=== PATIENT | female | born 1960 | race Hispanic/Latino ===

== ENCOUNTER 2017-10-02 21:47 | Emergency (ER) | payer MEDICARE, OTHER ==
--- NOTE | 2017-10-03 00:53 | ER ---
Nurse's Notes [facility] Name: Yulissa Nova Age: 57 yrs Sex: Female : 1960 Arrival Date: 10/02/2017 Time: 21:48 Bed 26 Private MD: Diagnosis: Sprain of other ligament of left ankle;Pain in right knee;Pain in right foot Presentation: 10/02 21:56 Presenting complaint: Patient states: Fell on , reports pain to left foot and aj right knee that has not improved. Ambulated with limp to triage. Transition of care: patient was not received from another setting of care. Onset of symptoms was September 21, 2017. Care prior to arrival: None. 21:56 Method Of Arrival: Ambulatory 21:56 Acuity: ROBBIE 4 aj Triage Assessment: 22:01 General: Appears in no apparent distress. uncomfortable, Behavior is calm, cooperative, aj appropriate for age. Pain: Complains of pain in left foot and right knee Pain currently is 8 out of 10 on a pain scale. Neuro: Level of Consciousness is awake, alert, obeys commands, Oriented to person, place, time, situation. Respiratory: Airway is patent Respiratory effort is even, unlabored, Respiratory pattern is regular, symmetrical. Derm: Skin is intact, is healthy with good turgor, Skin is pink, warm \T\ dry. normal. Musculoskeletal: Reports pain in left foot and right knee. Historical: - Allergies: 22:01 Bactrim; aj 22:01 Cipro; aj - Home Meds: 22:01 Lisinopril Oral [Active]; Hydrochlorothiazide Oral [Active]; Lantus 100 unit/mL Sub-Q aj soln [Active]; Metformin Oral [Active]; humalin r [Active]; Trazodone Oral [Active]; Oxybutynin Chloride Oral [Active]; gabapentin oral oral [Active]; loratidine [Active]; Cymbalta oral oral [Active]; - PMHx: 22:01 Diabetes - IDDM; Hypertension; Hyperlipidemia; aj - PSHx: 22:01 Knee surgery; Hysterectomy; ; 1 st left rib removal; Tonsillectomy; aj Appendectomy; - Immunization history:: Adult Immunizations up to date. - Social history:: Smoking status: Patient/guardian denies using tobacco. Screenin:03 Abuse screen: Denies threats or abuse. Nutritional screening: No deficits noted. tl3 Tuberculosis screening: No symptoms or risk factors identified. Fall Risk None identified. Assessment: 23:03 General: Appears in no apparent distress. well groomed, well developed, well nourished, tl3 Behavior is calm, cooperative, appropriate for age. Pain: Complains of pain in left foot and right knee. Neuro: Level of Consciousness is awake, alert, obeys commands, Oriented to person, place, time, situation, Appropriate for age. Cardiovascular: Heart tones S1 S2 present Capillary refill < 3 seconds in left toes. Respiratory: Airway is patent Trachea midline Respiratory effort is even, unlabored, Respiratory pattern is regular, symmetrical. GI: GI: No signs and/or symptoms were reported involving the gastrointestinal system. : No signs and/or symptoms were reported regarding the genitourinary system. EENT: No signs and/or symptoms were reported regarding the EENT system. Derm: No signs and/or symptoms reported regarding the dermatologic system. Musculoskeletal: No signs and/or symptoms reported regarding the musculoskeletal system. Injury Description: fell on , injuring left ankle and foot, right knee. 04 00:15 Reassessment: Patient appears in no apparent distress at this time. No changes from tl3 previously documented assessment. Patient and/or family updated on plan of care and expected duration. Pain level reassessed. Patient is alert, oriented x 3, equal unlabored respirations, skin warm/dry/pink. PT RESTING IN BED WATCHING TV. 00:15 Reassessment: Patient appears in no apparent distress at this time. No changes from tl3 previously documented assessment. Patient and/or family updated on plan of care and expected duration. Pain level reassessed. Patient is alert, oriented x 3, equal unlabored respirations, skin warm/dry/pink. SLIM WRAPPED LEFT FOOT/ANKLE. Vital Signs: 10/02 22:01 BP 120 / 64; Pulse 85; Resp 17; Temp 97.7; Pulse Ox 97% on R/A; Weight 98.43 kg; Height aj 5 ft. 1 in. (154.94 cm); Pain 8/10; 10/03 00:15 BP 106 / 86; Pulse 61; Resp 18; Pulse Ox 100% on R/A; tl3 10/02 22:01 Body Mass Index 41.00 (98.43 kg, 154.94 cm) ED Course: 10/02 21:48 Patient arrived in ED. es 21:57 Triage completed. aj 22:01 Arm band placed on left wrist. Patient placed in waiting room, Patient notified of wait aj time. 22:35 Nicholas Bowser NP is PHCP. pm1 22:35 Ankit Russell MD is Attending Physician. pm1 23:02 Marylu Hudson, MACI is Primary Nurse. tl3 23:03 No apparent distress. Awaiting for x-ray. tl3 23:03 Patient has correct armband on for positive identification. Call light in reach. tl3 23:03 No provider procedures requiring assistance completed. Patient did not have IV access tl3 during this emergency room visit. 23:15 Knee Right 3 View XRAY In Process Unspecified. EDMS 23:15 Foot Left 3 View In Process Unspecified. EDMS 23:15 Ankle Left 3 View In Process Unspecified. EDMS 23:17 X-ray completed. Portable x-ray completed in exam room. Patient tolerated procedure kw well. 04 00:52 Shaw Trujillo MD is Referral Physician. pm1 Administered Medications: No medications were administered Outcome: 00:15 Discharged to home ambulatory. tl3 00:15 Condition: good 00:15 Discharge instructions given to patient, Instructed on discharge instructions, follow up and referral plans. Demonstrated understanding of instructions, follow-up care. 00:53 Discharge ordered by MD. pm1 01:17 Patient left the ED. tl3 Signatures: Dispatcher [employer] Lisa Smallwood, RN RN Stephanie Millan Kimberlee Nicholas Bowser NP COUNTY ENGINEER pm1 Marylu Hudson, MACI RN tl3
--- NOTE | 2017-10-03 00:53 | EDPHYS ---
Physician Documentation [facility] Name: Yulissa Nova Age: 57 yrs Sex: Female : 1960 Arrival Date: 10/02/2017 Time: 21:48 Bed 26 Private MD: ED Physician Ankit Russell HPI: 10/03 00:00 This 57 yrs old Female presents to ER via Ambulatory with complaints of Fall pm1 Injury. 00:00 Details of fall: The patient fell from an upright position, while walking. Onset: The pm1 symptoms/episode began/occurred 09/21. Associated injuries: The patient sustained right knee and left foot. Severity of symptoms: in the emergency department the symptoms have improved, mildly. The patient has not experienced similar symptoms in the past. Patient tripped and fell on 09/21 resulting in pain to right knee and left foot. Patient walking with limp due to pain in left foot. Patient without any headache, head injury, or neck pain. No LOC. Historical: - Allergies: 10/02 22:01 Bactrim; aj 22:01 Cipro; aj - Home Meds: 22:01 Lisinopril Oral [Active]; Hydrochlorothiazide Oral [Active]; Lantus 100 unit/mL Sub-Q aj soln [Active]; Metformin Oral [Active]; humalin r [Active]; Trazodone Oral [Active]; Oxybutynin Chloride Oral [Active]; gabapentin oral oral [Active]; loratidine [Active]; Cymbalta oral oral [Active]; - PMHx: 22:01 Diabetes - IDDM; Hypertension; Hyperlipidemia; aj - PSHx: 22:01 Knee surgery; Hysterectomy; ; 1 st left rib removal; Tonsillectomy; Appendectomy; - Immunization history:: Adult Immunizations up to date. - Social history:: Smoking status: Patient/guardian denies using tobacco. ROS: 10/03 00:00 Constitutional: Negative for fever, chills, and weight loss, Eyes: Negative for injury, pm1 pain, redness, and discharge, ENT: Negative for injury, pain, and discharge, Neck: Negative for injury, pain, and swelling, Cardiovascular: Negative for chest pain, palpitations, and edema, Respiratory: Negative for shortness of breath, cough, wheezing, and pleuritic chest pain, Abdomen/GI: Negative for abdominal pain, nausea, vomiting, diarrhea, and constipation, Back: Negative for injury and pain, : Negative for injury, bleeding, discharge, and swelling. Skin: Negative for injury, rash, and discoloration, Neuro: Negative for headache, weakness, numbness, tingling, and seizure. MS/extremity: Positive for pain, of the left foot and right knee. Exam: 00:00 Constitutional: This is a well developed, well nourished patient who is awake, alert, pm1 and in no acute distress. Head/Face: Normocephalic, atraumatic. Eyes: Pupils equal round and reactive to light, extra-ocular motions intact. Lids and lashes normal. Conjunctiva and sclera are non-icteric and not injected. Cornea within normal limits. Periorbital areas with no swelling, redness, or edema. ENT: Nares patent. No nasal discharge, no septal abnormalities noted. Tympanic membranes are normal and external auditory canals are clear. Oropharynx with no redness, swelling, or masses, exudates, or evidence of obstruction, uvula midline. Mucous membranes moist. Neck: Trachea midline, no thyromegaly or masses palpated, and no cervical lymphadenopathy. Supple, full range of motion without nuchal rigidity, or vertebral point tenderness. No Meningismus. Chest/axilla: Normal chest wall appearance and motion. Nontender with no deformity. No lesions are appreciated. Cardiovascular: Regular rate and rhythm with a normal S1 and S2. No gallops, murmurs, or rubs. Normal PMI, no JVD. No pulse deficits. Respiratory: Lungs have equal breath sounds bilaterally, clear to auscultation and percussion. No rales, rhonchi or wheezes noted. No increased work of breathing, no retractions or nasal flaring. Abdomen/GI: Soft, non-tender, with normal bowel sounds. No distension or tympany. No guarding or rebound. No evidence of tenderness throughout. Back: No spinal tenderness. No costovertebral tenderness. Full range of motion. Skin: Warm, dry with normal turgor. Normal color with no rashes, no lesions, and no evidence of cellulitis. 00:00 Musculoskeletal/extremity: Extremities: grossly normal except: noted in the lateral side of left foot: pain, noted in the right knee: pain. Vital Signs: 10/02 22:01 BP 120 / 64; Pulse 85; Resp 17; Temp 97.7; Pulse Ox 97% on R/A; Weight 98.43 kg; Height aj 5 ft. 1 in. (154.94 cm); Pain 8/10; 10/03 00:15 BP 106 / 86; Pulse 61; Resp 18; Pulse Ox 100% on R/A; tl3 10/02 22:01 Body Mass Index 41.00 (98.43 kg, 154.94 cm) aj MDM: 10/02 22:45 Patient medically screened. pm1 10/03 00:51 Data reviewed: vital signs. Data interpreted: Pulse oximetry: on room air is 97 %. pm1 Interpretation: normal. Counseling: I had a detailed discussion with the patient and/or guardian regarding: the historical points, exam findings, and any diagnostic results supporting the discharge/admit diagnosis, radiology results, the need for outpatient follow up, to return to the emergency department if symptoms worsen or persist or if there are any questions or concerns that arise at home. 10/02 22:46 Order name: Knee Right 3 View XRAY pm1 10/02 23:15 Order name: Foot Left 3 View [facility] 10/02 23:15 Order name: Ankle Left 3 View [facility] 10/03 00:48 Order name: Aneudy wrap-joint; Complete Time: 01:22 pm1 Administered Medications: No medications were administered Disposition: 01:30 Co-signature as Attending Physician, Ankit Russell MD. javier Disposition: 10/03/17 00:53 Discharged to Home. Impression: Sprain of other ligament of left ankle, Pain in right knee, Pain in right foot. - Condition is Stable. - Discharge Instructions: Ankle Sprain, Crutch Use, Foot Sprain, Knee Pain. - Medication Reconciliation Form, Thank You Letter form. - Follow up: Emergency Department; When: As needed; Reason: Worsening of condition. Follow up: Shaw Trujillo MD; When: 2 - 3 days; Reason: Recheck today's complaints, Continuance of care, Re-evaluation by your physician. - Problem is new. - Symptoms have improved. Signatures: Dispatcher [employer] [facility] Lisa Wooten RN RN aj Lam, Pin, MD MD pkNicholas Velasco NP ANIMAL RESCUER pm1 Marylu Hudson, RN RN tl3 Corrections: (The following items were deleted from the chart) 10/02 23:15 22:46 Foot Right 3 View+RAD.RAD.BRZ ordered. EDMS EDMS 23:15 22:46 Ankle Right 3 View+RAD.RAD.BRZ ordered. EDMS EDMS
[2017-10-03 01:39] VITALS: TEMP 97.7
[2017-10-03 01:40] VITALS: BP 106/86; O2SAT 100
--- NOTE | 2017-10-03 08:48 | RAD REPORT ---
EXAM DESCRIPTION: RAD - Ankle Left 3 View -10/02/2017 11:20 pm CLINICAL HISTORY: Left ankle pain status post injury FINDINGS: No fracture or dislocation is seen. Soft tissue swelling is present
--- NOTE | 2017-10-03 08:48 | RAD REPORT ---
EXAM DESCRIPTION: RAD - Knee Right 3 View - 10/02/2017 11:20 pm CLINICAL HISTORY: Right knee pain FINDINGS: No fracture or dislocation is seen. Right knee arthroplasty has been performed. The prosthesis is in good position without evidence of lo osening
--- NOTE | 2017-10-03 08:51 | RAD REPORT ---
EXAM DESCRIPTION: RAD - Foot Left 3 View - 10/02/2017 11:20 pm CLINICAL HISTORY: Left Foot pain FINDINGS: No fracture or dislocation is seen.
== END 2017-10-03 01:17 | disposition home or self-care (01) ==
LOC: ER 21:47
DX: S93.492A Sprain of other ligament of left ankle, initial encounter (principal); M25.561 Pain in right knee; M79.671 Pain in right foot; I10 Essential (primary) hypertension; E11.9 Type 2 diabetes mellitus without complications; W18.30XA Fall on same level, unspecified, initial encounter; Y93.01 Activity, walking, marching and hiking; Y92.9 Unspecified place or not applicable; Z79.4 Long term (current) use of insulin; Z88.1 Allergy status to other antibiotic agents; Z88.3 Allergy status to other anti-infective agents
CPT/HCPCS: 99283

== ENCOUNTER 2022-12-04 00:10 | Emergency (ER) | payer MEDICARE, OTHER ==
[2022-12-04] MEDS ORDERED: KETOROLAC 30 MG/ML INJ ONE (00:44)
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
[2022-12-04 03:26] VITALS: BP 124/65; O2SAT 98
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
--- NOTE | 2022-12-05 14:33 | RAD REPORT ---
EXAM DESCRIPTION: RAD - Hand Left 3 View - 12/04/2022 1:31 am CLINICAL HISTORY: The patient is 62 years old and is Female; [facility] MAIN TECHNIQUE: Frontal, lateral and oblique views of the left hand. COMPARISON: No relevant prior studies available. FINDINGS: BONES/JOINTS: Negative ulnar variance incidentally noted. No acute fracture. No dislocation. SOFT TISSUES: Unremarkable. No radiopaque foreign body. IMPRESSION: No acute findings in the left hand. Electronically signed by: Hilario Ahuja MD 12/04/2022 2:11 AM CDT Due to temporary technical issues with the PACS/Fluency reporting system, reports are being signed by the in house radiologist without review as a courtesy to ensure prompt reporting. The interpreting r adiologist is fully responsible for the content of the report.
--- NOTE | 2022-12-05 14:38 | RAD REPORT ---
EXAM DESCRIPTION: CT - Head C Spine Roger Andrew - 12/04/2022 5:09 am CLINICAL HISTORY: The patient is 62 years old and is Female; [facility] MAIN TECHNIQUE: Axial computed tomography images of the head and cervical spine without intravenous contr ast, and axial computed tomography images of the chest, abdomen and pelvis with intravenous contrast. Sagittal and coronal reformatted images were created and reviewed. This CT exam was performed us ing one or more of the following dose reduction techniques: automated exposure control, adjustment of the mA and/or kV according to patient size, and/or use of iterative reconstruction technique. COMPARISON: No relevant prior studies available. FINDINGS: HEAD AND NECK: BRAIN: Unremarkable. No extra-axial fluid collection. No intracranial hemorrhage. No transtentorial herniation. No focal calle-white matter differentiation abnormality. MIDLINE SHIFT: No midline shift. TRACHEA: Unremarkable. RETROPHARYNGEAL SPACE: Unremarkable. THYROID: Unremarkable. No enlarged or calcified nodules. ORBITS: Right-sided lens replacement. CHEST: LUNGS: Unremarkable. No mass. No consolidation. PLEURAL SPACE: Unremarkable. No significant effusion. No pneumothorax. HEART: Unremarkable. No cardiomegaly. No significant pericardial effusion. No significant cor onary artery calcifications. MEDIASTINUM: Patulous appearance of the distal esophagus. ABDOMEN: LIVER: Mild hepatomegaly with no focal parenchymal abnormality. GALLBLADDER AND BILE DUCTS: Cholecystectomy. No ductal dilation. PANCREAS: Unremarkable. No ductal dilation. No mass. SPLEEN: Unremarkable. No splenomegaly. ADRENALS: Unremarkable. No mass. KIDNEYS AND URETERS: Unremarkable. No hydronephrosis. No solid mass. STOMACH AND BOWEL: Unremarkable. No obstruction. No mucosal thickening. PELVIS: APPENDIX: No findings to suggest acute appendicitis. BLADDER: Unremarkable. No mass. REPRODUCTIVE: Unremarkable as visualized. C-SPINE, CHEST, ABDOMEN and PELVIS: INTRAPERITONEAL SPACE: See above. BONES/JOINTS: Sclerotic changes involving the bilateral symphysis pubis, suggesting osteitis pubis. Straightening of the cervical spine as the patient is positioned. No vertebral body height loss. Dens is intact. No fracture or subluxation. No dislocation. Mild multilevel cervical spine spondylosis with prominent posterior disc osteophyte complexes at C5-C6 and C6-7. Multilevel cervical neural foraminal bony narrowing, moderate to severe at the right C5-6 and C6-7 levels. No fracture of the calvarium or visualized facial bones. No high-grade bony spinal canal stenosis. SOFT TISSUES: Soft tissue stranding noted in the right lower abdomen subcutaneous fat (axial image 95/124). Tiny fat-containing umbilical hernia. Small fat-containing left inguinal hernia. VASCULATURE: Unremarkable. No aortic aneurysm. LYMPH NODES: Unremarkable. No enlarged lymph nodes. TUBES, LINES AND DEVICES: Neurostimulator device noted in the low left flank, with leads terminatin g along the left sacral plexus. IMPRESSION: 1. No acute intracranial or cervical spine abnormality. No acute abnormality within th e chest, abdomen, or pelvis. 2. Multilevel cervical neural foraminal bony narrowing, moderate to severe at the right C5-6 and C6 -7 levels. 3. Soft tissue stranding noted in the right lower abdomen subcutaneous fat (axial image 95/124). No nspecific. Clinical correlation for medication injection site, focal trauma, or rash/inflammatory ski n process. 4. Additional nonacute findings as above. Electronically signed by: Hilario Ahuja MD 12/04/2022 2:10 AM CDT Due to temporary technical issues with the PACS/Fluency reporting system, reports are being signed by the in house radiologist without review as a courtesy to ensure prompt reporting. The interpreting r adiologist is fully responsible for the content of the report.
== END 2022-12-04 03:04 | disposition home or self-care (01) ==
LOC: ER 00:10
DX: S13.4XXA Sprain of ligaments of cervical spine, initial encounter (principal); R29.91 Unspecified symptoms and signs involving the musculoskeletal system; E11.9 Type 2 diabetes mellitus without complications; I10 Essential (primary) hypertension; Z88.1 Allergy status to other antibiotic agents
CPT/HCPCS: 82565; 70450; 72125; 71260; 74177; 73130; 73630; 96374; 99284; Q9967